=== PATIENT | male | born 1975 | race Caucasian/White ===

== ENCOUNTER 2017-12-15 11:47 | Inpatient (IN) | payer OTHER ==
[~2017-12-15] VITALS: Ht 188 cm; Wt 148.8 kg
--- NOTE | 2017-12-15 12:14 | ED PSYCHIATRIC COMPLAINT ---
History of Present Illness General Chief Complaint: Psychiatric Related Complaint Stated Complaint: +SI Source: patient, old records Exam Limitations: no limitations Vital Signs & Intake/Output Vital Signs & Intake/Output Vital Signs Date Time Temp Pulse Resp B/P B/P Pulse O2 O2 Flow FiO2 Mean Ox Delivery Rate 12/15 1305 98.6 86 18 168/116 93 Room Air 12/15 1228 111 199/109 12/15 1225 Room Air 12/15 1203 99.4 111 22 199/109 97 Room Air Allergies Coded Allergies: NO KNOWN ALLERGIES (02/05/12) Reconcile Medications No Known Home Medications Triage Note: PT BIBA ON PEEC S/P ANGRY OUTBURST AT BANK WHERE THE PT STATES THAT HE SAID "IM GONNA GO HOME GET MY GUN AND STICK IT IN MY MOUTH AND PULL THE TRIGGER" PT STATES THAT HE WAS GIVEN AND FALSE CHECK AND THE [employer] CLOSED HIS ACCOUNT AND HE SAID HE FLIPPED OUT, PT STATES HE KNOWS THAT HE OVER REACTED AND DID WRONG. PT STATES THAT HE WAS ANGRY AND DID NOT MEAN WHAT HE SAID. PT DENIES SI AND HI Triage Nurses Notes Reviewed? yes Onset: Abrupt Duration: better Timing: single episode today Severity: moderate Severity Numbers: 5 HPI: Patient is a 42-year-old male with a past medical history hypertension mood disorder and psychosis in which she states that 2 months ago he moved to [place] from [place] however he is unable to find a job since moving back up here where he states that he's been texturing a woman in which she sent him a check where he tried to deposit check today however the store cashier at the [employer] stated that they were going to close count due to a fraudulent check where patient became verbally upset and stated at the [employer] that he was going to go home and shoot himself in the head where patient was confronted by the authorities at his home and patient was brought in by ambulance. Patient denies any suicidal or homicidal ideations at this time states that he's had anger issues in the past denies any current mood disorder medications however states he takes an unknown 5 mg pill for his blood pressure where he states he has not been taking this due to his blood pressure being "normal" when taken at home Patient denies any fever chills chest pain arm pain jaw pain and blurred vision headache nausea vomiting or paresthesias. Denies any illicit drug use or alcohol use or tobacco use. Denies any auditory or visual hallucinations Past History Travel History Traveled to [place] past 21 day No Medical History Any Pertinent Medical History? see below for history Cardiovascular: hypertension Psychiatric: psychosis Surgical History Surgical History: non-contributory Psychosocial History What is your primary language Syriac Tobacco Use: Never used Family History Hx Contributory? No Review of Systems Review of Systems Constitutional: Reports: no symptoms. EENTM: Reports: no symptoms. Respiratory: Reports: no symptoms. Cardiovascular: Reports: no symptoms. GI: Reports: no symptoms. Genitourinary: Reports: no symptoms. Musculoskeletal: Reports: no symptoms. Skin: Reports: no symptoms. Neurological/Psychological: Reports: see HPI. Hematologic/Endocrine: Reports: no symptoms. Immunologic/Allergic: Reports: no symptoms. All Other Systems: Reviewed and Negative Physical Exam Physical Exam General Appearance: no apparent distress, comfortable Head: atraumatic Eyes: Bilateral: normal appearance, PERRL, EOMI. Ears, Nose, Throat: normal ENT inspection, hearing grossly normal Neck: normal inspection Respiratory: normal breath sounds, chest non-tender, no respiratory distress Cardiovascular: tachycardia Gastrointestinal: normal bowel sounds, soft, non-tender Neurological/Psychiatric: no motor/sensory deficits, awake, machine iii coremaker II-XII nml as tested Appearance/Memory/Insight: denies illness Behavoir/Eye Contact/Speech: cooperative, normal speech, good eye contact Thoughts/Hallucinations: normal thought pattern, no apparent hallucination Skin: intact, normal color SAD PERSONS SAD PERSONS Response Value Male Sex? yes 1 Single//? yes 1 Organized/Serious Attempt yes 2 Total 4 SAD PERSONS Done? yes Progress Differential Diagnosis: drug intoxication, drug overdose, drug withdrawal, electrolyte abnormality, encephalitis, hypoglycemia, hypothyroidism, IC hem/mass /tumor, meningitis Plan of Care: Orders Procedure Date/time Status Regular Diet 12/15 D Active Lab Add-on Test 12/15 1553 Active Patient Data - inpatient psych 12/15 1550 Active Admit to inpatient psych 12/15 1550 Active TSH REFLEX 12/15 1322 Active GLYCOSYLATED HGB 12/15 1322 Active Continuous Observation Monitor 12/15 1213 Active URINE DRUG SCREEN FOR ER ONLY 12/15 1213 Complete ETHANOL 12/15 1213 Active COMPREHENSIVE METABOLIC PANEL 12/15 1213 Active CBC WITHOUT DIFFERENTIAL 12/15 1213 Complete ED CRISIS PSYCH CONSULT 12/15 1213 Active Vital Signs 12/15 UNK Active Nursing Misc 12/15 UNK Active Alternative Nursing Therapy 12/15 UNK Active Activity/Ambulation 12/15 UNK Active Current Medications Sig/Jaycob Start time Last Medication Dose Stop Time Status Admin Lisinopril 5 MG DAILY 12/16 09 [facility] (Prinivil) Olanzapine 10 MG AT BEDTIME 12/15 2099 [facility] (Zyprexa) Acetaminophen 650 MG Q6P PRN 12/16 1599 UNVr (Tylenol) Al Hydroxide/Mg 30 ML Q4-6 PRN PRN 12/16 1599 UN[facility]r Hydroxide (Maalox Plus) Benztropine Mesylate 1 MG Q6P PRN 12/15 1600 UNVr (Cogentin 1 MG Tablet) Benztropine Mesylate 1 MG Q6P PRN 12/16 1599 UNVr (Cogentin) Gabapentin 300 MG Q6P PRN 12/16 1599 UN[facility] (Neurontin) Haloperidol 5 MG Q6P PRN 12/16 1599 UNVr (Haldol) Haloperidol 5 MG Q6P PRN 12/15 1600 UNVr (Haldol) Lorazepam 2 MG Q6P PRN 12/15 1600 UNVr (Ativan) Magnesium Hydroxide 30 ML AT BEDTIME PRN 12/15 1600 UN[facility]r (Milk Of Magnesia) Trazodone HCl 50 MG AT BEDTIME NEED.. 12/16 1599 UN[facility]r (Desyrel) Laboratory Tests 12/15/17 1336: Urine Opiates Screen < 100, Methadone Screen < 40, Barbiturate Screen < 60, Ur Phencyclidine Scrn < 6.00, Amphetamines Screen < 100, U Benzodiazepines Scrn < 85, Urine Cocaine Screen < 50, Urine Cannabis Screen < 5.00 12/15/17 1322: Anion Gap 14, Estimated GFR > 60, BUN/Creatinine Ratio 18.8, Glucose 114 H, Hemoglobin A1c Pending, Calcium 9.6, Total Bilirubin 0.4, AST 18, ALT 32, Alkaline Phosphatase 100, Total Protein 8.1, Albumin 4.2, Globulin 3.9, Albumin/ Globulin Ratio 1.1, TSH &T3 &Free T4 Intrp Pending, CBC w Diff NO MAN DIFF REQ, RBC 5.09, MCV 82.6, MCH 27.9, MCHC 33.8, RDW 13.3, MPV 7.9, Gran % 78.1 H, Lymphocytes % 12.4 L, Monocytes % 8.5, Eosinophils % 0.5, Basophils % 0.5, Absolute Granulocytes 7.7 H, Absolute Lymphocytes 1.2, Absolute Monocytes 0.8 H, Absolute Eosinophils 0, Absolute Basophils 0.1, Serum Alcohol < 10.0 due to HPI and exam findings NO suspicion of an organ damage or hypertensive crisis Patient was given his blood pressure medications patient was evaluated by crisis management in which it is identified that patient will be admitted to Inpatient Psychiatry for concerns of schizoaffective disorder Departure Departure Disposition: STILL A PATIENT Condition: Stable Clinical Impression Primary Impression: Schizoaffective disorder Secondary Impressions: Hypertension, Outbursts of anger Referrals: Patient Has No Primary Care Dr (PCP/Family) Departure Forms: Customer Survey General Discharge Information Prescriptions: Current Visit Scripts No Known Home Medications Psych Admission Note Psychiatric Admission: I have seen and evaluated MOI MOYER. I have also reviewed all the pertinent lab results and diagnostic results. MOI MOYER will be admitted to our inpatient Psychiatric unit for treatment and care. Critical Care Note Critical Care Note Critical Care Time: 30-74 min
[2017-12-15 13:41] LABS: ABSOLUTE BASOPHIL COUNT 0.1 /CUMM (0.0-0.2); ABSOLUTE EOSINOPHIL COUNT 0 /CUMM (0.0-0.7); ABSOLUTE GRANULOCYTE CT 7.7 /CUMM (1.4-6.5); ABSOLUTE LYMPH COUNT 1.2 /CUMM (1.2-3.4); ABSOLUTE MONOCYTE COUNT 0.8 /CUMM (0.10-0.60); BASOPHIL % 0.5 % (0.0-2.0); EOSINOPHIL % 0.5 % (0-5); GRANULOCYTE % 78.1 % (42.2-75.2); HEMATOCRIT 42.1 % (42-52); MEAN CORPUSCULAR HGB 27.9 PG (27.0-31.0); MEAN CORPUSCULAR HGB CONC 33.8 G/DL (33.0-37.0); MEAN CORPUSCULAR VOLUME 82.6 FL (80.0-94.0); MEAN PLATELET VOLUME 7.9 FL (7.4-10.4); PLATELET COUNT 324 /CUMM (130-400); RBC DISTRIBUTION WIDTH 13.3 % (11.5-14.5); RED BLOOD CELL CT 5.09 /CUMM (4.70-6.10); WHITE BLOOD CELL COUNT 9.9 /CUMM (4.8-10.8)
--- NOTE | 2017-12-15 14:43 | ED PSYCH CRISIS CONSULTATION ---
Crisis Consult Basic Assessment Date of Consult: 12/15/17 Responsible Person/Accompanied By: self/biba/PEER Insurance Authorization: Insurance #1: Insurance name: GARY HUTCHINS Phone number: Policy number: [id number] Group number: Authorization number: ED Provider: Patient's ED Provider: Dedrick Richardson Primary Care Physician: Patient's PCP: Patient Has No Primary Care Dr PCP's Phone Number: Current Psychiatrist: none Chief Complaint: Psychiatric Related Complaint Patient's Quote: I blew up and said stupid shit Present Illness: pt is a 42 yo male biba to [facility] ED this afternoon on a [employer] PEER. PEER documents that pt was at [employer] and became frustrated and stated that he was going to go home and blow his brains out. Pt has a hx of inpatient [facility] admissions in 1998 and 2003 due to Command Hallucinations to kill himself and has been diagnosed with schizoaffective disorder. Pt has a reported hx of problem alcohol use but reports sobriety past 3+ yrs. Pt denies substance use. Pt denies SI/HI and states his comments were made out of frustration related to his [employer] acct being closed due to suspected attempt to escalante a fraudulent check. Pt reports a women he knows on-line sent him a check for $1100. Pt reports depression and anxiety due to financial stressors. 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 Pt reports difficulty sleeping, poor appetite and hopelessness and isolating. Pt reports last inpatient treatment was at [facility] in 2003. Pt reports outpatient at [facility] but many years ago. Pt reports no current or recent medications. Pt was treated with effectively with Zyprexa during prior inpatient admissions. Pt denies recent AH. Denies HI/VH. Pt has no gun access. Pt lives with his mother and sister and her family live in apartment upstairs. Mother reports pt appears on edge and has difficulty with stress management. She reports he has a past hx of intermittant Explosive D/O and auditory hallucinations when under stress. Pt presents as somewhat calm but becomes tearful when discussing his stresssors and family history. Pt is cooperative and OX3. Prior records list patient IQ at 78. Case reviewed with Dr Barber. Recommendation for inpatient psychiatric treatment. Pt in agreement with plan and has signed voluntary form for admission to [facility]. Patient's Address: [address] [place] [address] Other Phone Number: Who Do You Live With? Family Family/Informants Interviewed: Collateral provided by pt mother Mili [phone]. She reports pt has appeared depressed, stressed, not sleeping and isolating. She states he appears on edge and has difficulty with stress management. She reports past hx of intermittant Explosive D/O and auditory hallucinations when under stress. Allergies - Coded Allergies: NO KNOWN ALLERGIES (02/05/12) Current Medications - No Known Home Medications Laboratory Results: Laboratory Tests 12/15/17 1336: Urine Opiates Screen < 100, Methadone Screen < 40, Barbiturate Screen < 60, Ur Phencyclidine Scrn < 6.00, Amphetamines Screen < 100, U Benzodiazepines Scrn < 85, Urine Cocaine Screen < 50, Urine Cannabis Screen < 5.00 12/15/17 1322: Anion Gap 14, Estimated GFR > 60, BUN/Creatinine Ratio 18.8, Glucose 114 H, Calcium 9.6, Total Bilirubin 0.4, AST 18, ALT 32, Alkaline Phosphatase 100, Total Protein 8.1, Albumin 4.2, Globulin 3.9, Albumin/Globulin Ratio 1.1, CBC w Diff NO MAN DIFF REQ, RBC 5.09, MCV 82.6, MCH 27.9, MCHC 33.8, RDW 13.3, MPV 7.9 , Gran % 78.1 H, Lymphocytes % 12.4 L, Monocytes % 8.5, Eosinophils % 0.5, Basophils % 0.5, Absolute Granulocytes 7.7 H, Absolute Lymphocytes 1.2, Absolute Monocytes 0.8 H, Absolute Eosinophils 0, Absolute Basophils 0.1, Serum Alcohol < 10.0 Past History Past Medical History Cardiovascular: hypertension Psychiatric: psychosis Past Surgical History Surgical History: non-contributory Psychosocial History Strengths/Capabilities: trying to have positive thoughts; has CDL license - looking for employment-sober 3 yrs Psychiatric Treatment History Psych Treatment Psychiatric Treatment Yes Inpatient Treatment Yes Outpatient Treatment Yes Location of Treatment [facility] 1998 and 2003; [facility] Reason for Treatment schizoaffective d/o Response to Treatment pt reports relatively stability and sobriety off medications past several yrs Diagnosis by History: schizoaffective d/o etoh Substance Use/Abuse History Drug Use/Abuse Substances Used/Abused No Substance Abuse Treatment Substance Abuse Treatment Past Substance Abuse [place] No Comments: pt denies recent etoh and substance use. Pt hx of alcohol abuse -reports sobriety past 3 yrs. Current Mental Status Mental Status Orientation: Person, Place, Situation Affect: Depressed, Labile Speech: WNL Appearance Appearance- Dress/Hygiene: hospital scrubs; shaved head; glasses Behaviors Thought Process: Irrational Thought Content: Auditory Hallucinations (by hx) Memory: WNL Insight: Fair SI/HI Risk Assessment Past Suicidal Ideation/Attempts Yes Current Suicidal Ideation/Att Yes (pt denies) Past Homicidal Ideation/Att: No Current Homicidal Ideation/Attempts No Degree of Intent: None Gravely Disabled: Poor Impulse Control, Poor Judgment Lethality Ratin PTSD Checklist PTSD Done? patient declined ED Management Sitter: Yes Restraints: No DSM5/PS Stressors/Medical Prob Diagnosis' (DSM 5, Stressors, Medical): Schizoaffective d/o F 25.1 unemployed/job search [employer] relationships hypertension Current GAF: 25 Comments: pt reports motivation to resume medications and outpatient treatment Departure Disposition Psych Medical Clearance Date: 12/15/17 Medically Cleared at: 1400 Time Started: 1400 Time Ended: 1445 Psychiatrist Consulted: Johan Barber MD Date Disposition Established: 12/15/17 Time Disposition Established: 1600 Plan for Disposition - Modality: Inpatient Psychiatry Facility: [facility] Follow-up Appt Date: 12/15/17 Rationale for Disposition: mood stabilization; medication assessment Type of IP Admission: Voluntary Referrals Patient Has No Primary Care Dr (PCP/Family)
[2017-12-15 17:37] VITALS: BP 146/79
--- NOTE | 2017-12-15 17:40 | IP CRISIS DIAG ASSESS PSYCH ---
Diagnostic Assessment Basic Assessment Insurance Authorization: Insurance #1: Insurance name: GARY Alvraez [employer] Phone number: Policy number: [id number] Group number: Authorization number: [id number] Primary Care Physician: Patient's PCP: Patient Has No Primary Care Dr PCP's Phone Number: Patient's Quote: I blew up and said stupid shit Present Illness: pt is a 42 yo male biba to [facility] ED this afternoon on a [facility] PEER. PEER documents that pt was at [facility] and became frustrated and stated that he was going to go home and blow his brains out. Pt has a hx of inpatient [facility] admissions in 1998 and 2003 due to Command Hallucinations to kill himself and has been diagnosed with schizoaffective disorder. Pt has a reported hx of problem alcohol use but reports sobriety past 3+ yrs. Pt denies substance use. Pt denies SI/HI and states his comments were made out of frustration related to his [employer] acct being closed due to suspected attempt to escalante a fraudulent check. Pt reports a women he knows on-line sent him a check for $1100. Pt reports depression and anxiety due to financial stressors. 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 Pt reports difficulty sleeping, poor appetite and hopelessness and isolating. Pt reports last inpatient treatment was at [facility] in 2003. Pt reports outpatient at [facility] but many years ago. Pt reports no current or recent medications. Pt was treated with effectively with Zyprexa during prior inpatient admissions. Pt denies recent AH. Denies HI/VH. Pt has no gun access. Pt lives with his mother and sister and her family live in apartment upstairs. Mother reports pt appears on edge and has difficulty with stress management. She reports he has a past hx of intermittant Explosive D/O and auditory hallucinations when under stress. Pt presents as somewhat calm but becomes tearful when discussing his stresssors and family history. Pt is cooperative and OX3. Prior records list patient IQ at 78. Case reviewed with Dr Barber. Recommendation for inpatient psychiatric treatment. Pt in agreement with plan and has signed voluntary form for admission to [facility]. Patient's Address: [address] [place] [address] Other Phone Number: Who Do You Live With? Family Feel Safe Where You Live? Yes Feel Safe in Your Relationship Yes Marital Status: single Do You Have Children? No Primary Language? [place] Verdean Language(s) Spoken At Home: [place]dean Family/Informants Interviewed: Collateral provided by pt mother Mili . She reports pt has appeared depressed, stressed, not sleeping and isolating. She states he appears on edge and has difficulty with stress management. She reports past hx of intermittant Explosive D/O and auditory hallucinations when under stress. Allergies - Coded Allergies: NO KNOWN ALLERGIES (02/05/12) Current Medications - No Known Home Medications Consequences of Psych Med Use: pt not on medications. Pt treated previously with Zyprexa Lab Results: Laboratory Tests 12/15/17 1336: Urine Opiates Screen < 100, Methadone Screen < 40, Barbiturate Screen < 60, Ur Phencyclidine Scrn < 6.00, Amphetamines Screen < 100, U Benzodiazepines Scrn < 85, Urine Cocaine Screen < 50, Urine Cannabis Screen < 5.00 12/15/17 1322: Anion Gap 14, Estimated GFR > 60, BUN/Creatinine Ratio 18.8, Glucose 114 H, Hemoglobin A1c Pending, Calcium 9.6, Total Bilirubin 0.4, AST 18, ALT 32, Alkaline Phosphatase 100, Total Protein 8.1, Albumin 4.2, Globulin 3.9, Albumin/ Globulin Ratio 1.1, TSH &T3 &Free T4 Intrp Pending, CBC w Diff NO MAN DIFF REQ, RBC 5.09, MCV 82.6, MCH 27.9, MCHC 33.8, RDW 13.3, MPV 7.9, Gran % 78.1 H, Lymphocytes % 12.4 L, Monocytes % 8.5, Eosinophils % 0.5, Basophils % 0.5, Absolute Granulocytes 7.7 H, Absolute Lymphocytes 1.2, Absolute Monocytes 0.8 H, Absolute Eosinophils 0, Absolute Basophils 0.1, Serum Alcohol < 10.0 Toxicology Screen Completed? Yes Results: negative Past History Abuse/Trauma History Trauma History/Current Trauma: Denies Legal History Current Legal Status: none Have you ever been arrested? No Number of Arrests: 0 Psychosocial History Strengths/Capabilities: trying to have positive thoughts; has CDL license - looking for employment-sober 3 yrs Psychiatric Treatment History Psych Treatment Psychiatric Treatment Yes Inpatient Treatment Yes Outpatient Treatment Yes Location of Treatment [facility] 1998 and [facility] Reason for Treatment schizoaffective d/o Response to Treatment pt reports relatively stability and sobriety off medications past several yrs Diagnosis by History: schizoaffective d/o etoh Substance Use/Abuse History Drug Use/Abuse minimum 12mo Hx Substances Used/Abused No Substance Abuse Treatment Substance Abuse Treatment Past Substance Abuse [place] No Education History Highest Level of Education: high school/GED Preferred Learning Style: visual, auditory, experiential Current Mental Status Mental Status Orientation: Person, Place, Situation Affect: Depressed, Labile Speech: WNL Appearance Appearance- Dress/Hygiene: hospital scrubs; shaved head; glasses Behaviors Thought Process: Irrational Thought Content: Auditory Hallucinations (by hx) Memory: WNL Insight: Fair SI/HI Risk Assessment - Minimum 6mo History- Past Suicidal Ideation/Attempts Yes Current Suicidal Ideation/Att Yes (pt denies) Past Homicidal Ideation/Att: No Current Homicidal Ideation/Attempts No Degree of Intent: None Gravely Disabled: Poor Impulse Control, Poor Judgment Lethality Ratin Needs/Init TX Plan/Goals: Psychiatric Evaluation Medication Assessment Individual, Family and Group meetings Coordinated Discharge Planning AUDIT-C Questionnaire: AUDIT-C Questionnaire: Response Value ETOH use in the past year Never 0 # drinks typical/day Doesn't Drink 0 6 or > drinks per occasion Never 0 Total 0 DSM5/PS Stressors/Medical Prob Diagnosis' (DSM 5, Stressors, Medical): Schizoaffective d/o F 25.1 unemployed/job search [employer] relationships hypertension Current GAF: 25 Comments: pt reports motivation to resume medications and outpatient treatment
[2017-12-15 20:22] VITALS: BP 119/80
[2017-12-15] MEDS ORDERED: PRINIVIL5 M1 PO (21:31)
[2017-12-15] MEDS ORDERED: ZYPREXA10 M1 PO (21:32)
[2017-12-16 08:38] VITALS: BP 120/82
--- NOTE | 2017-12-16 12:58 | CPS PROVIDER INIT ASMT PSYCH ---
Psychiatric Admission Buyers' Agent's Note Reviewed: Yes Patient Seen and Examined: Yes (Seen with NICHOL Armas and TIMOTHY std) Identifying Information: 42 yo SWM with hx schizoaffective d/o, alcohol use d/o and BIF, admitted on 12/15 on a voluntary basis, referred by ER. Chief Complaint: Made comment at [facility] that if he had a gun, he would kill himself. Reaction to Hospitalization: "It don't bother me. Everyone is nice here." History of Present Illness Onset of Illness: Chronic hx but doing well off medications for several years. Reports a woman he met online sent him a check to deposit and he brought it to the [facility] last . It was put on a 5-day hold. Yesterday, [facility] called him to come. They told him the check was fraudulent, they were closing his account and he owed the bank $28. Circumstances Leading to Admission: As above. Made suicidal comment. [place] suicidal for that moment only. Denies have access to guns. Problem(s) Justifying Need for Admission: Suicidal comment. Other HPI: Sleep: good. Appetite: fine. Energy: okay. Past Psychiatric History Past Diagnosis(es)- if any: hx schizoaffective d/o, alcohol use d/o and BIF Past Precipitating Factors- if any: SI. - Include inpatient and outpatient treatment Treatment History: [facility] Dami Huerta 3.5 years ago. Inpatient 3x, CPS. History of Suicide Attempts or Gestures Denies. Substance Abuse History: No tobacco. No alcohol x 3.5 years. No drugs. Allergies: Coded Allergies: NO KNOWN ALLERGIES (02/05/12) Home Med List: Lisinopril 5 mg daily. Past olanzapine 5 mg t.i.d. - Include any medical condition(s) that may - impact the patient's recovery/remission Past Medical History: Cholecystectomy. Hypertension. Overweight. L shoulder fx. R knee sprain. Past History Medical History Cardiovascular: hypertension Psychiatric: psychosis Isolation History: Standard Surgical History Surgical History: cholecystectomy Psychiatric Family/Social Hx Family History Psychiatric Illness: Denied. Substance Use: Father alcoholic. Suicides: Denied. Social History Living Situation: Lives with mother. Sister and her family live upstairs. Returned to [place] 2.5 months ago to help mother care for patient's niece and nephew. Significant Relationships (family/friends): Mother, sister. Has GF in [place]. Single. No children. Education: HS grad, special ed for dyslexia. Trade school for 1 year, automotive. Vocation/Occupation: Not working for 2 months. No income. Legal: No arrest history. Healthly Behaviors Screening Tobacco Screening Tobacco Use from ED Docu: Never used - If tobacco counseling indicated - the following topics are required. - #1 Recognizing dangerous situations. - #2 Coping Skills. - #3 Basic information about quitting. Status of Tobacco Cessation Counseling: Not Applicable Cessation Med Status Not Applicable Alcohol Screening - ETOH screen POS if BAL >=80 or Audit-C>= M4/F3 Audit-C Score from Diag Assess: 0 Blood Alcohol Level: Laboratory Tests 12/15 1322 Toxicology Serum Alcohol (<10 MG/DL) < 10.0 Alcohol Use Screening Results: Neg per Audit C &/or BAL - If ETOH counseling indicated - the following topics are required. - #1 Express concern about the patient's - drinking at unhealthy levels, include informing - of national norms for moderate drinking: - men <= 14 drinks/week, max 4 drinks/occasion - women <= 7 drinks/week, max 3 drinks/occasion - #2 Providing feedback, including linking alcohol to - negative physical effects (liver injury, hypertension) - negative emotional effects (relationship problems and - depression) - negative occupational consequences (reduced work - performance) - #3 Advising the patient to abstain from alcohol or - to drink below national norms for moderate drinking - (as listed above). Status of ETOH Use Counseling: N/A B/C NO ETOH Use Metabolic Screening - Screen if on a Neuroleptic Medication - Metabolic screening should include: - Blood Pressure, BMI, Glucose or Hgb A1c, & a - Lipid profile from within the past 365 days. Metabolic Screening () Not Applicable, patient not on a neuroleptic. OR () Patient on a neuroleptic(s) . Enter below results for Hemoglobin A1C, and lipid panel if obtained during the last 365 days. BMI: 42.100 Blood Pressure: 120/82 Laboratory Results From [facility] (If applicable): [x] Lab Hemoglobin A1c 6.0 % H 12/15/17 1322 Lipid panel pending. Exam and Plan Mental Status Examination Ambulation Status: Gait WNL. Appearance: Overweight WM dressed in t-shirt and shorts. Bearded. Attitude towards examiner: Calm, polite and cooperative. Psychomotor activity: There is no psychomotor agitation/retardation. Behavior: Unremarkable. Quality of speech: Normal in volume, rate and tone. Affect: Calm and blunted. Mood: Good. Sad 0/10. Anxiety 0/10. Denies feeling hopeless, helpless, worthless or guilty. Suicidal Ideation: Denies active and passive SI now. Had momentary SI yesterday. Homicidal Ideation: Denies HI. Hallucinations: Denies AH and VH. Paranoid/Delusional Material: Denies PI and magical jha. Difficulties with thought organization: None. Insight: Fair. Judgment: Was poor, better now. Orientation: Ox3. Cognition: Grossly intact. Memory Function: Grossly intact. Estimate of intellectual functioning: Borderline. Assets/Strengths Patient Identified Assets/Strengths: Hands-on fixing stuff. Impression/Plan Impression and Plan: Patient is here after 2 examples of poor judgement: 1. depositing a check from a stranger 2. making suicidal comment at bank - Include all active medical diagnosis that require tx DSM 5 Diagnosis(es): Unspecified depression Schizoaffective d/o by history - Initial Tx Plan for Active Psych & Medical Conditions Treatment Plan: Patient was restarted on olanzapine, which he did well on in the past. It might help organize his thinking. Major risks/benefits of olanzapine were discussed with the patient, including risks of irreverisible TD and metabolic syndrome (with weight gain, DM, HTN and HLD). Patient was advised to avoid drugs and alcohol while on this medication. We will try to arrange a family meeting with mother. Anticipate likely discharge tomorrow to home and family with referral to [facility]. - Factors that would help patient function - in a less restrictive setting. Factors: Not suicidal. Improved judgment.
--- NOTE | 2017-12-16 13:37 | SOCIAL WORKER SOCIAL HX PSYCH ---
Social History Basic Assessment Insurance Authorization: Insurance #1: Insurance name: [employer] Phone number: Policy number: [id number] Group number: Authorization number: Present Problem: The following was obtained from the diagnostic assessment by Sky Madison LCSW. Present Illness: pt is a 42 yo male biba to [facility] this afternoon on a [place] [employer] PEER. PEER documents that pt was at [facility] and became frustrated and stated that he was going to go home and blow his brains out. Pt has a hx of inpatient [facility] admissions [facility] 1998 and 2003 due to Command Hallucinations to kill himself and has been diagnosed with schizoaffective disorder. Pt has a reported hx of problem alcohol use but reports sobriety past 3+ yrs. Pt denies substance use. Pt denies SI/HI and states his comments were made out of frustration related to his bank acct being closed due to suspected attempt to escalnate a fraudulent check. Pt reports a women he knows on-line sent him a check for $1100. Pt reports depression and anxiety due to financial stressors. 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 Pt reports difficulty sleeping, poor appetite and hopelessness and isolating. Pt reports last inpatient treatment was at [facility] in 2003. Pt reports outpatient at [facility] but many years ago. Pt reports no current or recent medications. Pt was treated with effectively with Zyprexa during prior inpatient admissions. Pt denies recent AH. Denies HI/VH. Pt has no gun access. Pt lives with his mother and sister and her family live in apartment upstairs. Mother reports pt appears on edge and has difficulty with stress management. She reports he has a past hx of intermittant Explosive D/O and auditory hallucinations when under stress. Pt presents as somewhat calm but becomes tearful when discussing his stresssors and family history. Pt is cooperative and OX3. Prior records list patient IQ at 78. Case reviewed with Dr Barber. Recommendation for inpatient psychiatric treatment. Pt in agreement with plan and has signed voluntary form for admission to [facility]. Primary Language? Canadian Language(s) Spoken At Home: Canadian Living Situation Rents or Owns Home? owns (Lives with mother ) Feel Safe Where You Are Living Yes Feel Safe in Relationships? Yes Comments: pt expressed he has recently moved back to [place] after living in [place]. Pt was living with mother and sister and they moved back to [place] for his sister's job. Pt is close to his mother and sister. Pt reports a good relationship with his father. Pt reports that his parents where high school sweet heart but they are now . pt reported having a girlfriend in [place] but did not elaborate on that topic. Allergies - Coded Allergies: NO KNOWN ALLERGIES (02/05/12) Current Medications - Miscellaneous Medications Lisinopril (Prinivil) 5 MG TABLET 5 MG PO HTN (Reported) Entered as Reported by Staci Curry on 12/15/172130 Olanzapine (Zyprexa) 10 MG TABLET MENTAL HEALTH (Reported) Entered as Reported by Staci Curry on 12/15/172131 Past History Past Medical History Cardiovascular: hypertension Psychiatric: psychosis Past Surgical History Surgical History: non-contributory /Family History Place/Country of Origin: [place], [place] Childhood Family Constellation: Mother, Father,Sister Primary Childhood Caretakers: father, mother Family Life During Childhood: "good childhood" DCF Involvement? No Mother's Age (Current/): 68 Relationship w/Mother: "good, I live with her" Father's Age (Current/): 68 Relationship w/Father: "good Any Sibling(s)? Yes Sibling's Gender(s)/Age(s): female Sibling 1: Relationship w/Sibling(s): "good" Relationship w/Friends: "good" Family Psych/Sub Abuse/Add Hx: drug of choice (alcohol ) Other Comments: Pt reports his father and paternal grandfather were both alcoholics. Pt reports he use to drink but has been sober for 3 and a half years now. Abuse/Trauma History Trauma History/Current Trauma: Denies History of Trauma/Abuse Treatment? No Legal History Legal Guardian/Address/Phone: self Current Legal Status: none Pending Court Dates: none Have you ever been arrested No Number of Arrests: 0 Hx of Juvenile Legal Charges? No Hx of Adult Legal Charges? No Civil Proceedings: none Domestic Relations Court: none Child Protective Serv Involvmnt none Food Or Baggage Handling [place] none Psychosocial History Primary Support System: mother Strengths/Capabilities: trying to have positive thoughts; has CDL license - looking for employment-sober 3 yrs, supportive mother and sister. Weaknesses: isolative at time, withdrawn from hobbies, Last Physical: 2016 History of Seizures? No History of Blackouts? No ADL Limitations: none reported [place]/Social/Peer Relations "good" Meaningful Activities: Riding pebbles, playing with remote control cars, watching football and nascar Childhood Restoration: Sikh Current Hinduism Affiliation: Sikh Is Spirituality Important to You? "not really, I only go to holiness when theres a wedding or " Patient's Ethnicity: Alivia, Croatian Cultural/Ethnic Issues: none reported Are There Developmental Issues? No Milestones Achieved: fine motor, gross motor Psychiatric Treatment History Psych Treatment Inpatient Treatment Yes Outpatient Treatment Yes Location of Treatment [facility] 1998 and 2003; [facility] Reason for Treatment schizoaffective d/o Response to Treatment pt reports relatively stability and sobriety off medications past several yrs Diagnosis: schizoaffective d/o etoh Psychodynamic Issues: father and paternal grandfather were alcholics, isolative Risk Factors: high anxiety/distress, isolate/no social support, poor impulse control, lack of outcome concern, male, limited support Substance Use/Abuse History Drug Use/Abuse:Min 12 mo hx Substance Used/Abused Alcohol Last Used three and a half years ago For how long years Route of use oral Have Had Periods of Sobriety? Yes Explain: Pt has been sober for 3 and a half years. Pt reports stopping "cold turkey". Relapse History? No Have You Ever Attended AA? No Do You Attend AA Currently? No Do You Have a Sponsor? No Substance Abuse Treatment Substance Abuse Treatment Inpatient Treatment No Outpatient Treatment No Sexual History Sexually Active No Sexual Orientation Heterosexual Education History Highest Level of Education: high school/GED Highest Grade Completed: 12 Vocational Year Completed: 1 year of automotive school Number of College Years: 0 Preferred Learning Style: visual, auditory, experiential HX of Learning Difficulties: Learning Disabilities (dislexia) Barriers to Learning: None reported Special Communication Needs: None reported Employment History Employment Unemployed No. of Jobs in Last 5 Years: 2 Attendance: Normal Performance: Good Comments: Pt is currently seeking employement since moving back to [place], pt has CDL. History Have You Been in The ? No Current Mental Status Mental Status Orientation: Person, Place, Situation Affect: Flat, Labile Speech: WNL Neuro-vegetative: Anhedonia, Concentration Poor, Energy Decreased, Helpless, Loss of Interest Appearance Appearance- Dress/Hygiene: Personal clothing; shaved head; glasses Behaviors Thought Process: WNL Thought Content: Auditory Hallucinations (by hx), WNL Memory: WNL Insight: Fair SI/HI Risk Assessment Past Suicidal Ideation/Attempts Yes Current Suicidal Ideation/Att No Past Homicidal Ideation/Att: No Current Homicidal Ideation/Attempts No Degree of Intent: None Gravely Disabled: Lack of Insight, Poor Impulse Control, Poor Judgment Risk Factors: High Anxiety/Distress, Isolated/no social suppor, Lack of concern outcome, Male, Poor impulse control Lethality Ratin - Conclusion and Recommendations for treatment - and discharge planning Summary: [facility] was able to meet with pt and complete social history. Pt reports feeling fine and settling into the unit well. Pt was soft spoken and reports motivation for finding a job. Pt reports having a good relationship with mother and sister. Pt has been sober for 3 1/2 years and stopped cold turkey. Pt has denies SI,HI at this time.
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
--- NOTE | 2017-12-16 14:37 | History & Physical ---
General Information and HPI History of Present Illness: This young male was admitted to the hospital after he was brought in by the police after some argument at a bank and he reportedly threatened to kill himself with a gun. He does have a long-standing history of previous psychiatric illness and has been admitted in [place] and he claims he was in [facility] about 5 years ago last time. He has just moved to [place] about 2 months ago from [place] where he was living for about 3 years with his mother and sister and her family From medical standpoint he does not have any significant illness except for his high blood pressure that he claims was found in [place] a few months ago when he had his gallbladder out. There is no other ongoing medical problems according to the patient and he does not remember what medicine he was taking. His parents are and father lives in [place] mother in [place]. Denies doing any other illegal drugs and does not drink any alcohol and claims he used to drink a lot many years ago. Allergies/Medications Allergies: Coded Allergies: NO KNOWN ALLERGIES (02/05/12) Home Med list Lisinopril (Prinivil) 5 MG TABLET 5 MG PO HTN (Reported) Olanzapine (Zyprexa) 10 MG TABLET MENTAL HEALTH (Reported) Past History Travel History Traveled to [place] past 21 day No Medical History Cardiovascular: hypertension Psychiatric: psychosis Isolation History: Standard Surgical History Surgical History: non-contributory Review of Systems Review of Systems Constitutional: Denies: no symptoms. EENTM: Denies: no symptoms. Cardiovascular: Denies: no symptoms. Respiratory: Denies: no symptoms. GI: Denies: no symptoms. Genitourinary: Denies: no symptoms. Musculoskeletal: Denies: no symptoms. Skin: Denies: no symptoms. Neurological/Psychological: Reports: see HPI, cognitive dysfunction, confusion. Hematologic/Endocrine: Denies: no symptoms. Immunologic/Allergic: Denies: no symptoms. All Other Systems: Reviewed and Negative Exam & Diagnostic Data Last 24 Hrs of Vital Signs/I&O Vital Signs Date Time Temp Pulse Resp B/P B/P Pulse O2 O2 Flow FiO2 Mean Ox Delivery Rate 12/16 0849 92 120/82 12/16 0838 96.4 92 120/82 12/152 98.7 92 119/80 12/15 1737 97.9 92 146/79 12/15 1627 92 18 144/72 94 Room Air Room Air Intake & Output 12/16 1600 12/16 0800 12/16 0000 Intake Total Output Total Balance Patient 328 lb Weight Physical Exam General Appearance Alert, Oriented X3, Cooperative, No Acute Distress Skin No Rashes, No Breakdown, No Significant Lesion HEENT Atraumatic, PERRLA, EOMI, Mucous Membr. moist/pink Neck Supple, No JVD, No thryomegaly, +2 Carotid Pulse wo Bruit Lymphatic Cervical nl Cardiovascular Regular Rate, Normal S1, Normal S2, No Murmurs, Gallops, Rubs Lungs Clear to Auscultation, Normal Air Movement Abdomen Soft, No Tenderness, No Hepatospenomegaly, No Masses Neurological Exam Findings: Normal Gait, Normal Speech, Strength at 5/5 X4 Ext, Normal Tone, Sensation Intact, Cranial Nerves 3-12 NL, Reflexes 2+ Cranial Nerves II through XII: WNL Extremities No Clubbing, No Cyanosis, No Edema, No Tenderness/Swelling Assessment/Plan Assessment: This young male with a long-standing history of psychosis and schizoaffective disorder was admitted again for abnormal mental status and psychosis. He is obese and overweight and has history of hypertension and his blood pressure is well controlled on lisinopril 5 mg per day. His admission labs including CBCs electrolytes and liver functions are all normal and renal function were also normal and we can continue him on lisinopril 5 mg daily. No need for any other workup or treatment at this time. Urine toxicology screen is negative for any drugs of abuse and he will be seen as needed. As Ranked By This Provider Problem List: 1. Hypertension 2. Schizoaffective disorder 3. Outbursts of anger Miscellaneous Miscellaneous Documentation Attending Case Discussed With: Elisabeth GAMBOA,Johan Primary Care Physician: Patient Has No Primary Care Dr Patient sees these Specialists none Level of Patient Care: EMILY John Attending Review Statement Attending Statement Attending MD Statement: examined this patient, reviewed EMR data (avail), discussed with nursing Attending Assessment/Plan: this young male obese with a history of hypertension was admitted for schizoaffective disorder and psychosis. From medical standpoint he is stable without any acute medical problems and we will continue his lisinopril 5 mg daily without any changes. He does not need any other workup or treatment from medical point of view
--- NOTE | 2017-12-16 14:40 | IP INCIDENTAL NOTE PSYCH ---
Incidental Note Notation: Case and treatment plan discussed in team meeting. Staff reports that the patient denied SI and HI. Very social last evening. A little anxious this morning.
[2017-12-16 19:46] VITALS: BP 148/83
[2017-12-17 07:51] VITALS: BP 120/67
[2017-12-17 07:56] VITALS: BP 120/67
--- NOTE | 2017-12-17 10:12 | SOCIAL WORKER PROG NOTE PSYCH ---
Social Work Progress Note Progress Note Rescheduled the family meeting for 11:30am this morning due to a conflict. Called Ayla at [facility] and scheduled an intake for 12/28 at 9:30am. He will need a bridge for meds at [facility]. Got a bridge appt. 01/12 with Rasta Rose APRN at 2:30pm. Met with Luis Eduardo and his Mother at 11:30am. Luis Eduardo hadn't shared what happened with his Mother in reference to what led to the statement at the bank. He shared the information about the woman on line and the fraudulent check. We talked about the importance of not trusting folks that you meet online. He seems to understand this was a poor decision. The discussion of work came up. Luis Eduardo talked about his desire to find a sarah job because that he what he loves to do. 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 She told him that she is okay with him continuing to look at sarah jobs over the next month, but after that time frame she wants him looking for other jobs as well. Luis Eduardo got upset and started to raise his voice a bit. He voiced his concern over the way he feels his Mother isn't understanding the work he has been doing. He started crying and looked distressed, but was able to calm down within a couple of minutes. Mom reports that he often goes zero to hundred, but he never turns violent or gets aggressive with anyone or anything. There are no guns per Mom in the home. He will usually go to his room. Talked about him remaining on the Zyprexa until he can see his next provider and then discuss whether it should be discontinued. Dr. Barber is going to provide a month of medication to get him to his next appt. Mom stated she will hold the medication. Luis Eduardo is looking forward to reconnecting at [facility]. Talked about also looking into [facility] for work support. He has been connected with them in the past. I gave him a print out of the various office locations in [place]. Mom will be taking him home with her today. Discharged around 11:30am
[2017-12-17] MEDS ORDERED: PRINIVIL5 M1 PO (12:09)
[2017-12-17] MEDS ORDERED: ZYPREXA10 M1 PO (12:09)
--- NOTE | 2017-12-17 12:14 | Patient Discharge Instructions ---
Psych Discharge Inst General Discharge Information Reason for Admission: Made comment at bank that if he had a gun, he would kill himself. Psy Discharge Primary Diag+ Unspecified depression Psy Discharge Secondary Diag+ Schizoaffective d/o by hx Hypertension Overweight Summary Tests/Major Procedures Lab ALT 32 U/L 12/15/17 1322 AST 18 U/L 12/15/17 1322 BUN 15 mg/dL 12/15/17 1322 Carbon Dioxide 25 mmol/L 12/15/17 1322 Chloride 105 mmol/L 12/15/17 1322 Cholesterol 184 MG/DL 12/15/17 1322 Cholesterol/HDL Ratio 7 % H 12/15/17 1322 Creatinine 0.8 mg/dL 12/15/17 1322 Estimated GFR > 60 ml/min 12/15/17 1322 Glucose 114 mg/dL H 12/15/17 1322 HDL Cholesterol 28 mg/dL L 12/15/17 1322 Hemoglobin A1c 6.0 % H 12/15/17 1322 LDL Cholesterol, Calc 117 mg/dL 12/15/17 1322 Potassium 4.2 mmol/L 12/15/17 1322 Sodium 144 mmol/L 12/15/17 1322 TSH &T3 &Free T4 Intrp 1.130 uIU/mL 12/15/17 1322 Triglycerides 198 mg/dL H 12/15/17 1322 Absolute Granulocytes 7.7 /CUMM H 12/15/17 1322 Absolute Monocytes 0.8 /CUMM H 12/15/17 1322 Gran % 78.1 % H 12/15/17 1322 Hct 42.1 % 12/15/17 1322 Hgb 14.2 G/DL 12/15/17 1322 Lymphocytes % 12.4 % L 12/15/17 1322 Plt Count 324 /CUMM 12/15/17 1322 WBC 9.9 /CUMM 12/15/17 1322 Serum Alcohol < 10.0 MG/DL 12/15/17 1322 Studies Pending at [place]: None. Patient Instructions Contact Information Your Psychiatrist on [facility] was Johan Barber MD * If you are experiencing an emergency related to this hospitalization, please call [phone] to contact the treating psychiatrist or the psychiatrist-on- call. * To Request a copy of your medical records, please contact the Medical Records Department at [phone]. * To request results of studies pending at the time of discharge, please call [phone]. * Continue your Medications until directed to stop by your Healthcare provider. General Medication Information Please continue to take your new medications and your continued home medications , unless otherwise indicated on your discharge medication list, or unless directed by your MD or PLAN COORDINATOR to stop them. Special Instructions Diet Regular Activity Normal Other Inst/Recommendations Please see PCP about high hemoglobin A1c, high triglycerides and overweight - Tobacco Use Treatment Offered Post DC Medications Offered: Not Applicable Post DC Tobacco Treatment Plan: Not Applicable - EtOH/Drug Use D/O Treatment Offered Post DC Medications Offered: NA-No EtOH/Drug Use D/O Post DC EtOH/SubAbuse [place] Plan: NA-No EtOH/Drug Use D/O Metabolic Screening () Not Applicable, patient not on a neuroleptic. OR () Patient on a neuroleptic(s) . Enter below results for Hemoglobin A1C, and lipid panel if obtained during the last 365 days. BMI: 42.100 Blood Pressure: 120/67 Laboratory Results From [facility] (If applicable): [x] Lab Cholesterol 184 MG/DL 12/15/17 1322 Cholesterol/HDL Ratio 7 % H 12/15/17 1322 Glucose 114 mg/dL H 12/15/17 1322 HDL Cholesterol 28 mg/dL L 12/15/17 1322 Hemoglobin A1c 6.0 % H 12/15/17 1322 LDL Cholesterol, Calc 117 mg/dL 12/15/17 1322 Triglycerides 198 mg/dL H 12/15/17 1322 Advance Directives Does the Patient have Medical Advance Directives No/Refused further info Does Pt have Psychiatric Advance Directives? No/Refused further info Does Patient have a Designated Surrogate Decision Maker: No Information About Psychiatric Advance Directives Provided? Refused Discharge Plan Post Hospital Treatment Plan: Return to home and family. Referral to [facility]. Referral to Rasta Rose APRN at [facility] for bridging medication management appointment.
--- NOTE | 2017-12-17 13:58 | CP SOUTH PROGRESS NOTE PSYCH ---
Psych (Inpt) Progress Note Progress Note Include the following elements, when applicable: Involvement in the active treatment of the patient with behavioral observations of the patient and the patient's response to the treatment. Review of the ongoing treatment process in the context of the treatment plan. Indication of how multi-disciplinary staff members are carrying out the treatment plan. Plans for future interventions and recommendations for revision of the treatment plan. Liaison with other physicians/providers. Progress Note: Case and treatment plan discussed in team meeting. Staff reports that the patient is denying SI. Family meeting with mother was planned for today. Patient has expressed feeling ready to go. Patient seen at 10:11 a.m. Feels fine. Has no complaints. Affect is calm and euthymic. Appears awake and alert. Anticipating family meeting with mother. Mood: "it's great." Sad 0/10, anxiety 0/10. Denies feeling hopeless, helpless, worthless or guilty. Denies active and passive SI. Denies access to a gun. Denies HI, AH, VH and PI. Sleep: good. Appetite: fine. Energy: great. Tolerating Zyprexa well, without complaint. Major risks/benefits of Zyprexa were reviewed with patient, including risks of irreversible TD and metabolic syndrome (with weight gain, DM, HTN, HLD). Patient was advised to avoid drugs and alcohol while on this medication. He was advised not to drive or operate heavy machinery if groggy from this medication. I recommended that he work with his next prescriber on tapering Zyprexa to off over time. Feels ready and safe for discharge. I briefly joined family meeting with patient, mother and Chanda Gagnon LCSW. Mother is an SQL SERVER ARCHITECT, retired from [employer]. Patient's and mother's questions were addressed. IMPRESSION: Condition improved. Okay for discharge today to home and family with referral to [facility] and to [facility]PS for bridging medication management.
--- NOTE | 2017-12-17 16:28 | SOCIAL WORKER PROG NOTE PSYCH ---
See Addendum Social Work Progress Note Faxed Referral(s) Referred To: [facility] Transition of Care Documents sent: Health Summary Faxed to: Ayla Fax #: [phone] Faxed by: Chanda Gagnon Date faxed: 12/17/17 Time Faxed: [phone]
--- NOTE | 2017-12-17 20:30 | DISCHARGE SUMMARY REPORT-PSYCH ---
Visit Information Visit Dates/Diagnosis' Admission Date: 12/15/17 Discharge Date: 12/17/17 Reason for Admission: Made comment at bank that if he had a gun, he would kill himself. Psy Discharge Primary Diag: Unspecified depression Psy Discharge Secondary Diag: Schizoaffective d/o by hx Hypertension Overweight Hospital Course Significant Lab Findings: Lab ALT 32 U/L 12/15/17 1322 AST 18 U/L 12/15/17 1322 BUN 15 mg/dL 12/15/17 1322 Carbon Dioxide 25 mmol/L 12/15/17 1322 Chloride 105 mmol/L 12/15/17 1322 Cholesterol 184 MG/DL 12/15/17 1322 Cholesterol/HDL Ratio 7 % H 12/15/17 1322 Creatinine 0.8 mg/dL 12/15/17 1322 Estimated GFR > 60 ml/min 12/15/17 1322 Glucose 114 mg/dL H 12/15/17 1322 HDL Cholesterol 28 mg/dL L 12/15/17 1322 Hemoglobin A1c 6.0 % H 12/15/17 1322 LDL Cholesterol, Calc 117 mg/dL 12/15/17 1322 Potassium 4.2 mmol/L 12/15/17 1322 Sodium 144 mmol/L 12/15/17 1322 TSH &T3 &Free T4 Intrp 1.130 uIU/mL 12/15/17 1322 Triglycerides 198 mg/dL H 12/15/17 1322 Absolute Granulocytes 7.7 /CUMM H 12/15/17 1322 Absolute Monocytes 0.8 /CUMM H 12/15/17 1322 Gran % 78.1 % H 12/15/17 1322 Hct 42.1 % 12/15/17 1322 Hgb 14.2 G/DL 12/15/17 1322 Lymphocytes % 12.4 % L 12/15/17 1322 Plt Count 324 /CUMM 12/15/17 1322 WBC 9.9 /CUMM 12/15/17 1322 Serum Alcohol < 10.0 MG/DL 12/15/17 1322 Course Complications: None. Consultations: The patient was seen by Dr. Melara for admission H&P. Per his note of 12/16/17: "Assessment: This young male with a long-standing history of psychosis and schizoaffective disorder was admitted again for abnormal mental status and psychosis. He is obese and overweight and has history of hypertension and his blood pressure is well controlled on lisinopril 5 mg per day. His admission labs including CBCs electrolytes and liver functions are all normal and renal function were also normal and we can continue him on lisinopril 5 mg daily. No need for any other workup or treatment at this time. Urine toxicology screen is negative for any drugs of abuse and he will be seen as needed." Allergies: Coded Allergies: NO KNOWN ALLERGIES (02/05/12) Hospital Course/TX Response: The patient was monitored for safety and mood disorder. He participated in multi-modal treatments on the unit. He has a past history of schizoaffective disorder with s. He had done well in the past on Zyprexa 5 mg t.i.d. been had also done well for years off of medication. Zyprexa was restarted at 10 mg qhs to help organize thoughts. It should be tapered to off under provider's supervision. He reported that his suicidal ideation expressed at the bank was situational and short-lived. There was no evidence of psychosis. Behavior has been well-controlled. Mood and affect have been stable. Progress note from date of discharge, 12/17/17: "Case and treatment plan discussed in team meeting. Staff reports that the patient is denying SI. Family meeting with mother was planned for today. Patient has expressed feeling ready to go. Patient seen at 10:11 a.m. Feels fine. Has no complaints. Affect is calm and euthymic. Appears awake and alert. Anticipating family meeting with mother. Mood: "it's great." Sad 0/10, anxiety 0/10. Denies feeling hopeless, helpless, worthless or guilty. Denies active and passive SI. Denies access to a gun. Denies HI, AH, VH and PI. Sleep: good. Appetite: fine. Energy: great. Tolerating Zyprexa well, without complaint. Major risks/benefits of Zyprexa were reviewed with patient, including risks of irreversible TD and metabolic syndrome (with weight gain, DM, HTN, HLD). Patient was advised to avoid drugs and alcohol while on this medication. He was advised not to drive or operate heavy machinery if groggy from this medication. I recommended that he work with his next prescriber on tapering Zyprexa to off over time. Feels ready and safe for discharge. I briefly joined family meeting with patient, mother and Chanda Gagnon LCSW. Mother is an PLANNING FEEDER, retired from [employer]. Patient's and mother's questions were addressed." IMPRESSION: Condition improved. Okay for discharge today to home and family with referral to [facility]. Discharge HBIPS - Tobacco Use Treatment Offered Post DC Medications Offered: Not Applicable Post DC Tobacco Treatment Plan: Not Applicable - EtOH/Drug Use D/O Treatment Offered Post DC Medications Offered: NA-No EtOH/Drug Use D/O Post DC EtOH/SubAbuse TX Plan: NA-No EtOH/Drug Use D/O Metabolic Screening - Screen if on a Neuroleptic Medication - Metabolic screening should include: - Blood Pressure, BMI, Glucose or Hgb A1c, & a - Lipid profile from within the past 365 days. Metabolic Screening () Not Applicable, patient not on a neuroleptic. OR () Patient on a neuroleptic(s) . Enter below results for Hemoglobin A1C, and lipid panel if obtained during the last 365 days. BMI: 42.100 Blood Pressure: 120/67 Laboratory Results From [facility] (If applicable): [x] Lab Cholesterol 184 MG/DL 12/15/17 1322 Cholesterol/HDL Ratio 7 % H 12/15/17 1322 HDL Cholesterol 28 mg/dL L 12/15/17 1322 Hemoglobin A1c 6.0 % H 12/15/17 1322 LDL Cholesterol, Calc 117 mg/dL 12/15/17 1322 Triglycerides 198 mg/dL H 12/15/17 1322 Discharge Instructions General Discharge Information Multiple Neuroleptics: ([x]) Not Applicable OR Document below three failed attempts at monotherapy, or a plan to taper to monotherapy, or augmentation of Clozapine. () Discharge Diet Regular Discharge Activity Normal DC Disposition: Returning to home and family. Referrals Ordered Referrals [facility] 12/28/17 [address], [place] [address] Intake at [facility] 12/28/17 9:30am [address] [facility], [place] [id number] Provider Referral 01/12/18 For Groups: Outpatient Psychiatry [facility] Bridge appt. with Rasta Rose APRN 01/12/18 2:30pm [address], [place] [address] Prescriptions The following medications have been changed: Old: Lisinopril (Prinivil) 5 MG TABLET 5 Milligram ORAL New: Lisinopril (Prinivil) 5 MG TABLET 1 Tablet ORAL DAILY Qty = 30 Comments: Last Taken:12/17/17 Time:8AM Old: Olanzapine (Zyprexa) 10 MG TABLET ORAL New: Olanzapine (Zyprexa) 10 MG TABLET 1 Tablet ORAL AT BEDTIME Qty = 30 Comments: Last Taken:12/16/17 Time:9:30PM Other Inst/Recommendations Please see PCP about high hemoglobin A1c, high triglycerides and overweight Studies Pending at Discharge None. Copies To: Esteban; Rasta Rose APRN
== END 2017-12-17 12:32 | DRG 754 ==
LOC: ERH 11:47 → ERHI 15:50 → CP SOUTH 15:50 → ENTRNSPT 17:08 → EDTRNSPTSTS 17:12 → EDTRNSPT 17:12 → CP SOUTH 17:23 → CMPTRNSPT 17:36 → CP SOUTH 12-17 12:32
PROVIDERS: Physician Assistant
DX: F32.9 Major depressive disorder, single episode, unspecified (principal); F25.9 Schizoaffective disorder, unspecified; I10 Essential (primary) hypertension; E66.3 Overweight
CPT/HCPCS: 80307; G0480; J0515; J1630